=== PATIENT | male | born 1940 | race Caucasian/White ===

== ENCOUNTER 2019-12-22 07:08 | Outpatient (NON) | payer MEDICARE, SELFPAY ==
[2019-12-23 18:03] LABS: SARS-CoV-2 RNA PCR Positive
== END 2019-12-22 07:09 ==
DX: U07.1 COVID-19 (principal)
CPT/HCPCS: 87635; C9803; U0003

== ENCOUNTER 2022-05-12 11:34 | Emergency (ER) | payer MEDICARE, BC, SELFPAY ==
--- NOTE | ~2022-05-12 | XR_ITS ---
EXAMINATION: XR elbow LT min 3V DATE: 05/12/2022 12:02 INDICATION: Left elbow pain and swelling. TECHNIQUE: 4 views of left elbow were obtained. COMPARISON: None. FINDINGS: Bone alignment is normal. No fracture. Joint spaces are normal. There are enthesophytes at medial and lateral humeral epicondyles. There is a small elbow joint effusion. There is soft tissue s welling posterior to the elbow. IMPRESSION: 1. Small elbow joint effusion. Reviewed, dictated and finalized at location A. [facility] SERVICE ORDER
--- NOTE | 2022-05-12 11:41 | ED.GENADULT ---
HPI - General Adult General Chief complaint: Extremity Injury, Upper Stated complaint: lt elbow pain Source: patient and RN notes reviewed History of Present Illness HPI narrative: 81-year-old male presents to Urgent Care with at bedside. Patient states he woke up 2 mornings ago with left elbow pain. Patient states today the pain increased reports associated redness, tenderness, and slight swelling. Patient reports most of his pain with flexion past 90?. Patient is able to fully extend without issue. Patient states he does feel pain the volar side of his forearm of his biceps with flexion. Denies any injury. Patient denies any chest pain, shortness of breath, numbness, tingling, fevers or chills. Patient took Tylenol this morning with moderate relief. Patient currently takes allopurinol as well. Some parts of this dictation were generated by voice recognition software and may contain typographical and/or grammatical inaccuracies. Related Data Home Medications Medication Instructions Recorded Confirmed allopurinol 300 mg tablet 300 mg PO DIRECTED 05/12/22 05/12/22 amlodipine 5 mg tablet 5 mg PO DAILY 05/12/22 05/12/22 carvedilol 6.25 mg tablet 6.25 mg PO DAILY 05/12/22 05/12/22 ezetimibe 10 mg tablet 10 mg PO DAILY 05/12/22 05/12/22 furosemide 40 mg tablet 40 mg PO BID 05/12/22 05/12/22 lisinopril 40 mg tablet 40 mg PO DAILY 05/12/22 05/12/22 rosuvastatin 40 mg tablet 40 mg PO DAILY 05/12/22 05/12/22 Allergies Allergy/AdvReac Type Severity Reaction Status Date / Time No Known Allergies Allergy Unknown Unverified 05/22/17 11:02 Review of Systems Review of Systems: CONSTITUTIONAL: Denies fever, chills, or sweats. EYES: Denies visual changes, redness, or discharge. ENT: Denies otalgia and sore throat CARDIOVASCULAR: Denies chest pain, palpitations, or edema. RESPIRATORY: Denies cough or dyspnea. GASTROINTESTINAL: Denies abdominal pain, nausea, vomiting, or diarrhea. GENITOURINARY: Denies dysuria or hematuria. SKIN: Denies rash or itching. reports redness to left elbow MUSCULOSKELETAL: Reports left elbow pain and swelling NEUROLOGIC: Denies headache, numbness, or weakness. PMFSH Comments At the time of my signature, I reviewed and agree with the nursing past medical, surgical, social, and family history. There is no relevant family history pertinent to the patient complaint. Exam Narrative: GENERAL: This is a well-nourished, well-developed patient, in no apparent distress. HEAD: normocephalic, atraumatic. EYES: PERRL. Sclera clear/white. Vision is grossly intact. EARS: External ears normal, auditory canals clear and without drainage, TMs normal without perforation. Hearing grossly intact. NOSE: External nose normal with no obvious nasal discharge, nares without redness, no rhinorrhea. THROAT: Mucous membranes moist, posterior pharynx clear. NECK: Neck supple, non-tender without lymphadenopathy, masses or thyromegaly. CARDIOVASCULAR: Regular rate and rhythm without murmurs, gallops, or rubs. RESPIRATORY: Clear to auscultation. Breath sounds equal bilaterally. No wheezes, rales, or rhonchi. GASTROINTESTINAL: Abdomen soft, non-tender, nondistended. Bowel sounds are active. No hepato-splenomegaly, or palpable masses. No guarding. SKIN: warm, intact with no suspicious lesions or rash, good texture and turgor. NEURO: awake, alert, and oriented to person, place and time. There were no obvious focal neurologic abnormalities. EXTREMITIES: left posterior elbow noted to be tender, erythema. Course Course Level of Care: Express Care Visit Vital Signs Vital signs: Vital Signs Temperature 97.2 F L 05/12/22 11:44 Pulse Rate 76 05/12/22 11:44 Respiratory Rate 16 05/12/22 11:44 Blood Pressure 132/68 05/12/22 11:44 Pulse Oximetry 100 05/12/22 11:44 Temperature 97.2 F L 05/12/22 11:44 Pulse Rate 76 05/12/22 11:44 Respiratory Rate 16 05/12/22 11:44 Blood Pressure 132/68 05/12/22 1
[2022-05-12 11:44] VITALS: BP 132/68; PULSE 76; RESP 16; TEMP 36.2; O2SAT 100
== END 2022-05-12 12:28 | disposition home or self-care (01) ==
PROVIDERS: Emergency Provider Nurse Practitioner Family
DX: M70.32 Other bursitis of elbow, left elbow (principal); E78.00 Pure hypercholesterolemia, unspecified; I10 Essential (primary) hypertension; M19.90 Unspecified osteoarthritis, unspecified site; M10.9 Gout, unspecified; I25.2 Old myocardial infarction
CPT/HCPCS: 73080; 99213; G0463

== ENCOUNTER 2023-02-24 08:00 | Outpatient (RCR) | payer MEDICARE, SELFPAY ==
[2022-12-30 08:03] VITALS: BP_SYST 85
--- NOTE | 2022-12-30 10:37 | PTOPEVAL1 ---
Assessment and note entered by Audra Townsend, PT Evaluation Information Assessment Status Evaluation Diagnosis RTC repair 11/12/2022 Therapy conditions right shoulder pain, weakness, abnormal posture Subjective Information Had the at home shoulder CPM for 5-6 weeks then got the order for therapy recently. With passive movement was not painful but when reaching forward or out to the side is pain, or fast motion increases pain. Reported Pain Level Pain Score 0: Self Report Assessment PT Clinical Summary Pt presents 7 weeks s/p full rotator cuff repair. Initial 5-6 weeks used a continuous passive motion machine for RUE ROM. Presents to outpatient therapy with decreased ROM both active and passive with a significant difference in active and passive end-ranges showing decreased overall strength in right shoulder. Pt also demo's abnormal scapular position and postures as well as continues to have discomfort with use with reaching and lifting arm effecting ADLs. Pt will greatly benefit from physical therapy in order to address deficits, improve pain and function to allow for most independence with ADLs and activities. Plan of Care Interventions Electrical Stimulation,Hot Pack/Cold Pack,Manual Therapy,Neuro Re-education,Patient/Caregiver Educati,Therapeutic Activities,Therapeutic Exercise,Self-Care/Home Management PT Services Indicated Yes Treatment Frequency and 2x weekly x 8 weeks Duration These treatments will address the objective and functional deficits as defined above. The patient will be advanced safely and appropriately in order for the patient to progress towards his/her prior level of function. Additional exercises will be introduced and as well as a comprehensive home exercise program upon discharge, if needed, ?to ensure carryover of functional gains achieved in the clinic. This treatment plan has been reviewed and agreement upon by the patient.
--- NOTE | 2022-12-30 10:38 | OPREHPOC ---
Outpatient Therapy Plan of Care This is a Multidisciplinary Plan of Care that may contain components documented by all disciplines (PT, OT, and ST.) PT Problem 1 PT Problem #1 Knowledge Deficit PT Goal 1 Goal Pt will be independent in HEP Pt will verbalize understanding of diagnosis and prognosis Target Visit 8 PT Problem 2 PT Problem #2 Impaired Endurance PT Goal 1 Goal Pt will verbalize awareness of postural correction 50% to improve scapular position and decompress shoulder. Target Visit 8 PT Goal 2 Goal Will demo appropriate postures throughout therapy session without cueing to maintain improved GH rhythm Target Visit 16 PT Problem 3 PT Problem #3 Pain PT Goal 1 Goal Pt will report greatest pain level at 3/10 or less to improve use of RUE in ADLS Target Visit 8 PT Goal 2 Goal Pt will report resolution of pain to return to PLOF Target Visit 16 PT Problem 4 PT Problem #4 Impaired Range of Motion PT Goal 1 Goal Pt will demo Flexion PROM RUE of 140 to allow for improved use of RUE Pt will demo abduction PROM to 120 to improve use of RUE Target Visit 8 PT Goal 2 Goal Pt will demo active ROM of flexion RUE 140 to return to PLOF Pt will demo active ROM for abduction to 120 to equal LUE Pt will demo ability to reach behind in medial rotation to T10 to allow for improved dressing Target Visit 16
[2023-01-26 09:01] VITALS: BP_SYST 95
--- NOTE | 2023-01-26 17:17 | PTOPEVAL1 ---
Assessment and note entered by Audra Townsend, PT Assessment Status Progress Diagnosis RTC repair 11/12/2022 Therapy condition pain in right shoulder, weakness, abnormal posture Subjective Information Went to ortho for follow up and has been released from follow ups with MD. Pt reports after last session though has been having soreness in shoulder. Reaching forward really pulls before last session could lift arm easy but now can't. Hasn't taken any over the counter medication. Reported Pain Level Pain Score 2: Self Report Assessment PT Clinical Summary Pt is progressing in active ROM, guarded in passive ROM. Improved understanding with scapular position and effect on shoulder pain after today. Demo's continued deficits in ROM, scapular control , and pain. Pt will thus benefit from cont therapy to continue progression of range, strength, and function to return to prior level of function. Plan of Care Interventions Electrical Stimulation,Hot Pack/Cold Pack,Manual Therapy,Neuro Re-education,Patient/Caregiver Educati,Therapeutic Activities,Therapeutic Exercise,Self-Care/Home Management PT Services Indicated Yes Treatment Frequency and 1-2x weekly x 4 weeks Duration These treatments will address the objective and functional deficits as defined above. The patient will be advanced safely and appropriately in order for the patient to progress towards his/her prior level of function. Additional exercises will be introduced and as well as a comprehensive home exercise program upon discharge, if needed, ?to ensure carryover of functional gains achieved in the clinic. This treatment plan has been reviewed and agreement upon by the patient.
--- NOTE | 2023-02-02 08:56 | PCPTNOTE ---
Patient presented to therapy and cancelled scheduled appointment this date. Pt reports had a fall over the weekend and is having back pain, and is planning on going to urgent care for x-rays after therapy. Discussed holding off on therapy until after imaging. Pt appointment cancelled per therapist discretion.
[2023-02-24 08:00] VITALS: BP_SYST 110
--- NOTE | 2023-02-24 08:53 | PTOPDC ---
Assessment and note entered by Audra Townsend, PT Assessment Status Discharge Diagnosis RTC repair 11/12/2022 Subjective Information Pt reports is now able to reach up into overhead cabinet without issue, still favors lifting at times but reports this is from caution versus inability. Cont to have difficulty reach back to belt line and with pulling inward (internal rotation) as after last session is still sore. Feels this will get better with time. Self-percieved improvement: 80% Reported Pain Level Pain Score 0/10 at rest Assessment PT Clinical Summary Pt has attended therapy consistently post rotator cuff surgery. His initial 6 weeks was in UE continuous passive motion machine then initiated therapy 7 weeks post-operative. Since initiation, pt demos improved scapular awareness and control, improved ROM both passively and actively and reports ability to perform ADLs and activities at home with minimal difficulty. Only difficulty that remains is reaching behind with dressing for putting belt through loop and tucking in shirt. Pt cont to demo decreased ROM compared to LUE, and decreased strength overall. HOwever pt has been educated in finalized home program to continue independent progress and educated on when to return to doctor and/or therapy if he does not continue to progress. Thus patient is being discharged from therapy to temple benefit being met at this time.
== END 2023-02-24 10:29 | disposition home or self-care (01) ==
LOC: ANHHIPT 08:00
DX: M75.121 Complete rotator cuff tear or rupture of right shoulder, not specified as traumatic (principal); Z98.890 Other specified postprocedural states
CPT/HCPCS: 97014; 97110; 97112; 97140; 97161; 97530; 97750; G0283